=== PATIENT | female | born 1965 | race Caucasian/White ===

== ENCOUNTER 2018-12-16 07:25 | Day surgery (SDC) | payer OTHER ==
[~2018-12-16] VITALS: Ht 157.5 cm; Wt 84.4 kg
[2018-12-16 08:22] VITALS: Ht 157.5 cm; Wt 84.4 kg
[2018-12-16] MEDS ORDERED: LISI40TA3 PO (08:33)
[2018-12-16] MEDS ORDERED: NOVO3I SC (08:33)
[2018-12-16] MEDS ORDERED: INSU100I33 SC (08:33)
[2018-12-16] MEDS ORDERED: METF100010 PO (08:33)
[2018-12-16 10:13] VITALS: BP 150/72; PULSE 83; RESP 18
[2018-12-16] MEDS ORDERED: MIDAZOLAM 1 MG/ML 2 ML INJ ONE ×2 (11:20)
[2018-12-16] MEDS ORDERED: FENTAnyl 50 MCG/ML VIAL ONE (11:20)
== END 2018-12-16 12:48 | disposition home or self-care (01) ==
LOC: GIL 07:25
PROVIDERS: ATTEND Internal Medicine Gastroenterology
DX: Z12.11 Encounter for screening for malignant neoplasm of colon (principal); D12.3 Benign neoplasm of transverse colon; K64.8 Other hemorrhoids; E11.9 Type 2 diabetes mellitus without complications
CPT/HCPCS: 45380; 82962; 88305; J2250; J3010